=== PATIENT | male | born 1955 | race Caucasian/White ===

== ENCOUNTER 2025-03-13 23:32 | Emergency (ER) | payer MEDICARE, MEDICAID ==
[2025-03-13] MEDS ORDERED: Sodium Chloride 0.9% 10 ML Syringe FLUSH PRN (23:42)
[2025-03-14] MEDS: LORazepam 2 MG/ML SDV IVPUSH ONE (00:03)
[2025-03-14 00:06] LABS: BASOPHILS ABSOLUTE AUTO 0.08 K/uL (0.00-0.20); BASOPHILS PERCENT AUTO 0.5 % (0.0-2.0); EOSINOPHILS ABSOLUTE AUTO 0.41 K/uL (0.00-0.50); EOSINOPHILS PERCENT AUTO 2.7 % (0.0-5.0); IMMATURE GRAN ABSOLUTE AUTO 0.05 10^3/uL (0.00-0.04); IMMATURE GRAN PERCENT AUTO 0.3 % (0.0-0.4); LYMPHOCYTES ABSOLUTE AUTO 1.88 K/uL (0.50-3.50); LYMPHOCYTES PERCENT AUTO 12.3 % (10.0-50.0); MONOCYTES ABSOLUTE AUTO 1.48 K/uL (0.00-1.00); MONOCYTES PERCENT AUTO 9.7 % (2.0-14.0); NEUTROPHILS ABSOLUTE AUTO 11.37 K/uL (1.40-7.00); NEUTROPHILS PERCENT AUTO 74.5 % (45.0-80.0); PLATELET COUNT,PLT 502 K/uL (150-350); RED BLOOD CELL COUNT 3.74 M/uL (4.33-5.41); RED CELL DISTRIBUTION WIDTH 15.9 % (11.2-14.1); WHITE BLOOD CELL COUNT,WBC 15.3 K/uL (4.0-10.2)
[2025-03-14 00:18] LABS: APPEARANCE,URINE CLEAR (CLEAR); GLUCOSE,URINE NEGATIVE (NEGATIVE); OCCULT BLOOD,URINE NEGATIVE (NEGATIVE)
[2025-03-14 00:27] LABS: LACTIC ACID 1.1 mmol/L (0.4-2.0)
[2025-03-14 00:36] LABS: ALANINE AMINOTRANSFERASE,ALT 26.0 U/L (12-78); ASPARTATE AMNIOTRANSFERASE,AST 16.0 U/L (15-37); BILIRUBIN TOTAL 0.3 mg/dL (0.2-1.0); BLOOD UREA NITROGEN,BUN 83.0 mg/dL (7-18); CARBON DIOXIDE,CO2 23.8 mmol/L (21.0-32.0); CHLORIDE,CL 107.0 mmol/L (98-107); EST CRCL DRUG DOSING (CG) 12.33 mL/min; GLUCOSE RANDOM 130.0 mg/dL (70-99); POTASSIUM,K 5.4 mmol/L (3.5-5.1); PROTEIN TOTAL,TP 6.8 g/dL (6.4-8.2); SODIUM,NA 142.0 mmol/L (136-145)
[2025-03-14 00:38] LABS: ESTIMATED GFR 12.0 mL/min (>=60)
[2025-03-14 00:39] LABS: CREATININE 4.78 mg/dL (0.51-1.17); PRO B-TYPE NATRIUR PEPT,BNPPRO 12254 pg/mL (0-125)
[2025-03-14 00:50] LABS: INR 1.0 (0.9-1.1); PTT,PARTIAL THROMBOPLSTIN TIME 30.4 SEC (23.8-34.4)
== END 2025-03-14 03:04 ==
LOC: LL.ED 23:32
DX: A41.9 Sepsis, unspecified organism (principal); J96.00 Acute respiratory failure, unspecified whether with hypoxia or hypercapnia; N17.9 Acute kidney failure, unspecified; R33.9 Retention of urine, unspecified; E86.0 Dehydration; Z79.82 Long term (current) use of aspirin; Z79.899 Other long term (current) drug therapy
CPT/HCPCS: 36415; 51702; 71045; 71250; 74176; 80053; 81001; 82550; 83605; 83735; 83880; 84484; 85025; 85610; 85730; 87040; 93005; 94640; 96361; 96365; 96367; 96375; 99284; 99285-25; A9270-GY; J0696; J2060; J3373; J7030; J7050

== ENCOUNTER 2025-03-25 14:25 | Inpatient (IN) | payer MEDICARE, MEDICAID ==
[2025-03-25 15:03] LABS: BASOPHILS ABSOLUTE AUTO 0.09 K/uL (0.00-0.20); BASOPHILS PERCENT AUTO 0.8 % (0.0-2.0); EOSINOPHILS ABSOLUTE AUTO 0.41 K/uL (0.00-0.50); EOSINOPHILS PERCENT AUTO 3.7 % (0.0-5.0); IMMATURE GRAN ABSOLUTE AUTO 0.03 10^3/uL (0.00-0.04); IMMATURE GRAN PERCENT AUTO 0.3 % (0.0-0.4); LYMPHOCYTES ABSOLUTE AUTO 2.14 K/uL (0.50-3.50); LYMPHOCYTES PERCENT AUTO 19.3 % (10.0-50.0); MONOCYTES ABSOLUTE AUTO 1.07 K/uL (0.00-1.00); MONOCYTES PERCENT AUTO 9.6 % (2.0-14.0); NEUTROPHILS ABSOLUTE AUTO 7.37 K/uL (1.40-7.00); NEUTROPHILS PERCENT AUTO 66.3 % (45.0-80.0); PLATELET COUNT,PLT 423 K/uL (150-350); RED BLOOD CELL COUNT 3.84 M/uL (4.33-5.41); RED CELL DISTRIBUTION WIDTH 15.7 % (11.2-14.1); WHITE BLOOD CELL COUNT,WBC 11.1 K/uL (4.0-10.2)
[2025-03-25 15:21] LABS: HCO3 VENOUS,POC 24 mmol/L (23-28); O2 SATURATION VENOUS,POC 49 %; PCO2 VENOUS,POC 40 mmHg (41-51); PH VENOUS,POC 7.38 (7.31-7.41); PO2 VENOUS,POC 27 mmHg
[2025-03-25 15:34] LABS: ALANINE AMINOTRANSFERASE,ALT 27 U/L (12-78); ASPARTATE AMNIOTRANSFERASE,AST 23 U/L (15-37); BILIRUBIN TOTAL 0.3 mg/dL (0.2-1.0); BLOOD UREA NITROGEN,BUN 17 mg/dL (7-18); CARBON DIOXIDE,CO2 27.8 mmol/L (21.0-32.0); CHLORIDE,CL 107 mmol/L (98-107); CREATININE 1.33 mg/dL (0.51-1.17); ESTIMATED GFR 57 mL/min (>=60); ETHANOL BLOOD MEDICAL 0.001 g/dL (0.000-0.080); GLUCOSE RANDOM 104 mg/dL (70-99); POTASSIUM,K 4.5 mmol/L (3.5-5.1); PROTEIN TOTAL,TP 6.7 g/dL (6.4-8.2); SODIUM,NA 143 mmol/L (136-145); TSH ULTRASENSITIVE 2.047 mIU/mL (0.358-3.740)
[2025-03-25 15:36] LABS: LACTIC ACID 0.7 mmol/L (0.4-2.0)
[2025-03-25] MEDS: Sodium Chloride 0.9% 10 ML Syringe FLUSH PRN (15:45)
[2025-03-25 15:56] LABS: INR 1.1 (0.9-1.1); PTT,PARTIAL THROMBOPLSTIN TIME 30.4 SEC (23.8-34.4)
[2025-03-25 16:17] LABS: CORONAVIRUS COVID-19 NAA NEGATIVE (NEGATIVE); INFLUENZA A NAA NEGATIVE (NEGATIVE); INFLUENZA B NAA NEGATIVE (NEGATIVE); RESPIRATORY SYNCYTIAL VIR NAA NEGATIVE (NEGATIVE)
[2025-03-25] MEDS: Lactated Ringers 1,000 ML IV SCH ×2 (16:34→19:15)
[2025-03-25 17:02] LABS: APPEARANCE,URINE TURBID; GLUCOSE,URINE NEGATIVE (NEGATIVE); OCCULT BLOOD,URINE LARGE (NEGATIVE)
[2025-03-25] MEDS ORDERED: Albuterol 0.083% 2.5 MG/3 ML Neb Soln INH PRN (17:37)
[2025-03-25] MEDS: Arformoterol 15 MCG/2 ML Neb Soln INH SCH (22:03)
[2025-03-25] MEDS: Budesonide 0.5 MG/2 ML Neb Susp INH SCH (22:03)
[2025-03-26] MEDS: Cholecalciferol (Vitamin D3) 25 MCG Tab PO SCH (07:53)
== END 2025-03-26 10:23 | DRG 690 ==
LOC: LL.ED 14:25 → LL.MS 17:28
PROVIDERS: ADMIT Physician Assistant; ATTEND Physician Assistant
DX: N39.0 Urinary tract infection, site not specified (principal); N40.0 Benign prostatic hyperplasia without lower urinary tract symptoms; E86.0 Dehydration; N17.9 Acute kidney failure, unspecified; R62.7 Adult failure to thrive; I10 Essential (primary) hypertension; F10.10 Alcohol abuse, uncomplicated; F32.9 Major depressive disorder, single episode, unspecified; F41.9 Anxiety disorder, unspecified; G47.00 Insomnia, unspecified; E78.00 Pure hypercholesterolemia, unspecified; J44.9 Chronic obstructive pulmonary disease, unspecified; Z79.01 Long term (current) use of anticoagulants; Z79.1 Long term (current) use of non-steroidal anti-inflammatories (NSAID); Z79.51 Long term (current) use of inhaled steroids; K21.9 Gastro-esophageal reflux disease without esophagitis; Z79.899 Other long term (current) drug therapy; Z68.20 Body mass index [BMI] 20.0-20.9, adult; Z79.02 Long term (current) use of antithrombotics/antiplatelets
CPT/HCPCS: 36415; 51702; 70450; 71045; 80053; 80307; 81001; 82803; 83605; 83735; 84443; 84484; 85025; 85610; 85730; 86140; 87040; 87086; 87637; 93005; 93010; 94640; 96361; 96374; 99223; 99239; 99285-25; A9270-GY; J0696; J3490; J7120

== ENCOUNTER 2025-04-15 15:12 | Emergency (ER) | payer MEDICARE, MEDICAID | END 2025-04-15 16:30 | LOC: LL.ED 15:12 | DX: T83.021A Displacement of indwelling urethral catheter, initial encounter (principal); E78.00 Pure hypercholesterolemia, unspecified; I10 Essential (primary) hypertension; J44.9 Chronic obstructive pulmonary disease, unspecified; K21.9 Gastro-esophageal reflux disease without esophagitis; Z87.891 Personal history of nicotine dependence; Z88.8 Allergy status to other drugs, medicaments and biological substances; Z79.899 Other long term (current) drug therapy | CPT/HCPCS: 51702; 99284 ==

== ENCOUNTER 2025-04-23 07:06 | Emergency (ER) | payer MEDICARE, MEDICAID ==
[2025-04-23] MEDS: Lidocaine 2% HCl 11 ML Jelly Filled Syringe TOP ONE (07:49)
== END 2025-04-23 08:55 ==
LOC: SUPCPDRO 07:06 → LL.ED 07:06
DX: N40.1 Benign prostatic hyperplasia with lower urinary tract symptoms (principal); R33.8 Other retention of urine; Z46.6 Encounter for fitting and adjustment of urinary device; I10 Essential (primary) hypertension; E78.00 Pure hypercholesterolemia, unspecified; J44.9 Chronic obstructive pulmonary disease, unspecified; K21.9 Gastro-esophageal reflux disease without esophagitis; Z79.01 Long term (current) use of anticoagulants; Z79.899 Other long term (current) drug therapy
CPT/HCPCS: 51702; 99284; A9270-GY

== ENCOUNTER 2025-04-26 09:42 | Emergency (ER) | payer MEDICARE, MEDICAID ==
[2025-04-26] MEDS: Lidocaine 2% HCl 11 ML Jelly Filled Syringe TOP ONE (10:07)
== END 2025-04-26 10:17 | disposition home or self-care (01) ==
LOC: LL.ED 09:42
DX: T83.021A Displacement of indwelling urethral catheter, initial encounter (principal); E78.00 Pure hypercholesterolemia, unspecified; I10 Essential (primary) hypertension; J44.9 Chronic obstructive pulmonary disease, unspecified; K21.9 Gastro-esophageal reflux disease without esophagitis; Z79.51 Long term (current) use of inhaled steroids; Z79.899 Other long term (current) drug therapy; Z79.01 Long term (current) use of anticoagulants
CPT/HCPCS: 51702; 99283; A9270-GY